=== PATIENT | female | born 2000 | race Two or more races ===

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

== ENCOUNTER 2022-05-17 23:42 | Emergency (ER) | payer BC, OTHER ==
[~2022-05-17] VITALS: Ht 172.7 cm; Wt 68.0 kg
[2022-05-17 23:50] VITALS: BP 122/79
[2022-05-18] MEDS ORDERED: DEXAMETHASONE SOD PHOSPHATE 10 MG/ML VIAL IV ONE
[2022-05-18] MEDS ORDERED: DEXAMETHASONE SOD PHOSPHATE 10 MG/ML VIAL ONE (00:17)
--- NOTE | 2022-05-18 00:22 | NUR ---
THROAT SWAB FOR RAPID STREP A DONE AND SENT TO LAB
--- NOTE | 2022-05-18 01:23 | NUR ---
Patient discharged to home in stable condition. Written and verbal after care instructions given. Patient verbalizes understanding of instruction.
== END 2022-05-18 01:24 | disposition home or self-care (01) ==
LOC: ER 23:45
DX: J02.8 Acute pharyngitis due to other specified organisms (principal); Z88.8 Allergy status to other drugs, medicaments and biological substances
CPT/HCPCS: 87880; 99283; J1100; 86403-TC; 87070-TC